=== PATIENT | female | born 1970 | race African-American/Black ===

== ENCOUNTER 2021-10-07 19:58 | Emergency (ER) | payer OTHER, SELFPAY ==
[2021-10-07] VITALS (12 sets, daily range): BP systolic 110–122; BP diastolic 70–93; PULSE 70; RESP 16; TEMP 36.3; O2SAT 100
--- NOTE | 2021-10-07 20:42 | ED.GENADULT ---
HPI - General Adult General Chief complaint: Abdominal Pain Stated complaint: abdominal pain Time Seen by Provider: 10/07/21 20:19 History of Present Illness HPI narrative: 50-year-old female presented the emergency department for evaluation of epigastric and left upper quadrant abdominal pain. Patient states symptoms that started yesterday and were worsened after eating lunch. Patient denies any prior history of gallbladder disease. Patient denies any prior history of gastritis. Patient states she has not had any recent alcohol consumption. Patient states she does not take NSAIDs daily. Patient states she has had 9 children patient does have a history of seizures but does take Dilantin states her seizures are well controlled. Related Data Allergies Allergy/AdvReac Type Severity Reaction Status Date / Time No Known Allergies Allergy Verified 10/07/21 20:23 Review of Systems Review of Systems: CONSTITUTIONAL: Denies fever, chills, or sweats. EYES: Denies visual changes, redness, or discharge. ENT: Denies rhinorrhea, congestion, sore throat, or otalgia. CARDIOVASCULAR: Denies chest pain, palpitations, or edema. RESPIRATORY: Denies cough or dyspnea. GASTROINTESTINAL: See HPI GENITOURINARY: Denies dysuria or hematuria. SKIN: Denies rash or itching. MUSCULOSKELETAL: Denies back pain, joint pain, or myalgia. NEUROLOGIC: Denies headache, numbness, or weakness. Exam Narrative: APPEARANCE: Well appearing, no pain, no distress, well-nourished. HEAD: normocephalic, atraumatic. EYES: PERRLA/EOMI, conjunctivae clear. NOSE: Normal no drainage NECK: Supple. No adenopathy, no masses. RESPIRATORY: Airway patent, respirations nonlabored. Clear to auscultation bilaterally, no rales, rhonchi, wheezing. CARDIOVASCULAR: Regular rate and rhythm without murmurs rubs or gallops. ABDOMINAL: Mild epigastric tenderness to palpation. MUSCULOSKELETAL: Moves all extremities. Strength/ROM intact, No edema, No calf tenderness. NEURO: Alert. Cranial nerves II through XII intact. Grossly intact SKIN: Warm, dry. Normal Color PSYCHIATRIC: Normal affect/mood. Course Course Emergency Course: Patient reports that in response to the GI cocktail her pain is completely resolved. Patient was updated on the results to this point and on the treatment plan for home. Vital Signs Vital signs: Vital Signs Temperature 97.4 F L 10/07/21 20:02 Pulse Rate 70 10/07/21 20:02 Respiratory Rate 16 10/07/21 20:02 Blood Pressure 110/72 10/07/21 20:02 Pulse Oximetry 100 10/07/21 20:02 Oxygen Delivery Room Air 10/07/21 20:02 Temperature 97.4 F L 10/07/21 20:02 Pulse Rate 70 10/07/21 20:02 Respiratory Rate 16 10/07/21 20:02 Blood Pressure 114/93 H 10/07/21 21:31 Pulse Oximetry 100 10/07/21 21:31 Oxygen Delivery Room Air 10/07/21 20:02 Medical Decision Making Vital Signs Vital Signs: Vital Signs Temperature 97.4 F L 10/07/21 20:02 Pulse Rate 70 10/07/21 20:02 Respiratory Rate 16 10/07/21 20:02 Blood Pressure 110/72 10/07/21 20:02 Pulse Oximetry 100 10/07/21 20:02 Oxygen Delivery Room Air 10/07/21 20:02 Temperature 97.4 F L 10/07/21 20:02 Pulse Rate 70 10/07/21 20:02 Respiratory Rate 16 10/07/21 20:02 Blood Pressure 114/93 H 10/07/21 21:31 Pulse Oximetry 100 10/07/21 21:31 Oxygen Delivery Room Air 10/07/21 20:02 Lab Data Lab results reviewed: Yes I reviewed the patient's lab results. Result diagrams: 10/07/21 20:52 10/07/21 20:52 Labs: Lab Results 10/07/21 10/07/21 10/07/21 Range/Units 20:30 20:52 20:52 WBC 5.2 (4.5-10.0) K/mm3 RBC 3.89 L (4.2-5.4) M/mm3 Hgb 9.0 L (12.0-15.0) g/dL Hct 30.7 L (37.0-47.0) % MCV 78.9 L (80-100) fl MCH 23.1 L (26-34) pg MCHC 29.3 L (32-36) g/dl RDW 18.0 H (11.5-14.5) % Plt Count 214 (150-375) k/mm3 MPV 9.8 (7.4-10.4) fl Immature Gran % (Auto) 0.6 H (0-0
[2021-10-07 20:43] LABS: Appearance Urine Slightly Cloudy (Clear); Bacteria Urine Trace /hpf; Bilirubin Urine Negative (Negative); Blood Urine Trace-lysed (Negative); Color Urine Yellow (Yellow); Glucose Urine UA Negative (Negative); Ketones Urine Negative (Negative); Leukocyte Esterase Ur 2+ LEU/UL (Negative); Mucus Urine Rare /lpf; Nitrate Urine Negative (Negative); Protein Urine Negative (Negative); Specific Grav Ur 1.025 (1.001-1.035); Squamous Epithelial Cell Urine Many /hpf (Few); Urobilinogen Urine 0.2 mg/dL (<2.0)
[2021-10-07 20:48] LABS: Add Urine Microscopic? YES
[2021-10-07] MEDS: BELLADONNA ALK/PHENOB ELIX 10 ML, MAG HYDROX/ALUMINUM HYD/SIMETH 30 ML, LIDOCAINE HCL 2... PO (20:58)
[2021-10-07 20:59] LABS: Basophils Percent Auto 0.6 % (0.2-1.2); Eosinophils Absolute Auto 0.4 K/mm3 (0-0.3); Eosinophils Percent Auto 7.1 % (0-4.4); Hematocrit 30.7 % (37.0-47.0); Immature Granulocyte Absolute 0.03 K/mm3 (0.00-0.031); Immature Granulocyte Percent A 0.6 % (0-0.5); Lymphocytes Absolute Auto 2.15 K/mm3 (0.9-3.2); Lymphocytes Percent Auto 41.1 % (18.3-44.2); Mean Corpuscular HGB Conc 29.3 g/dl (32-36); Mean Corpuscular Hemoglobin 23.1 pg (26-34); Mean Corpuscular Volume 78.9 fl (80-100); Mean Platelet Volume 9.8 fl (7.4-10.4); Monocytes Absolute Auto 0.3 K/mm3 (0.1-0.6); Monocytes Percent Auto 5.9 % (2.6-8.5); Neutrophils Absolute Auto 2.3 K/mm3 (1.3-6.7); Neutrophils Percent Auto 44.7 % (45.5-73.1); Platelet Count Result 214 k/mm3 (150-375); Red Blood Count 3.89 M/mm3 (4.2-5.4); White Blood Count 5.2 K/mm3 (4.5-10.0)
[2021-10-07 21:11] LABS: Alanine Aminotransferase 14 U/L (6-35); Albumin Level 4.3 g/dL (3.5-5.1); Alkaline Phosphatase 73 U/L (38-126); Anion Gap 9 mmol/L (8-16); Aspartate Amino Transferase 36 U/L (14-36); Bilirubin,Total 0.2 mg/dL (0.2-1.3); Blood Urea Nitrogen 11 mg/dL (7-17); Calcium 9.2 mg/dL (8.4-10.2); Carbon Dioxide 27 mmol/L (22-30); Chloride 100 mmol/L (98-107); Estimated CRCL calculation 51 ml/min; Estimated Glomerular Filt Rate > 60; Glucose 101 mg/dL (65-110); Lipase 52 U/L (23-300); Potassium 3.9 mmol/L (3.4-5.0); Sodium 136 mmol/L (137-145)
[2021-10-07 21:16] LABS: Hypochromasia 1+ (NORMAL); Platelet Estimate Adequate (Adequate)
[2021-10-07 21:17] LABS: Anisocytosis 2+ (NORMAL)
== END 2021-10-07 21:43 | disposition home or self-care (01) ==
PROVIDERS: Emergency Provider Emergency Medicine
DX: R10.10 Upper abdominal pain, unspecified (principal)
CPT/HCPCS: 36415; 80053; 81001; 81025; 83690; 85025; 87086; 87088; 99283; A9270